=== PATIENT | male | born 1985 | race Caucasian/White ===

== ENCOUNTER 2022-11-16 06:52 | Emergency (ER) | payer OTHER ==
[~2022-11-16] VITALS: Ht 170 cm; Wt 78.0 kg
[2022-11-16] MEDS ORDERED: methylPREDNISolone 125 MG (Solu-MEDROL) VIAL IVP ONE (07:30)
[2022-11-16] MEDS ORDERED: FAMOTIDINE 20MG/2ML IV (PEPCID) IVP ONE (07:30)
[2022-11-16] MEDS ORDERED: diphenhydrAMINE 50 MG/ML INJ (BENADRYL) IVP ONE (07:30)
--- NOTE | 2022-11-16 07:32 | ED General ---
General Chief Complaint: Allergic Reaction Stated Complaint: SOB, LEFT EYE RED,RT EYE SWOLLEN Nursing Triage Note: Pt presents with c/o facial swelling and respiratory distress after taking 2 new antibiotics this morning. Pt states the too Rifampin and cefdenire at appros 0600 and started wheezing and noticing his R eye was swelling shut. Pt took a zyrtec and some afrin. Wheezing has subsided upon arrival to ED. Pt has no previously known medication allergies. Source of Information: Patient Exam Limitations: No Limitations (ROBBIN HANEY) History of Present Illness Date Seen by Provider: Nov 16, 2022 Time Seen by Provider: 07:22 Initial Comments 37yo M with no significant past medical hx presents to the ED with c/o b/l eye swelling, wheezing, and SOB that started ~45 minutes ago. Pt states that he started two new antibiotics this morning, rifampin and cefdinir. ~ 30 minutes after taking the medications, pt states that he experienced sneezing and b/l itching of his eyes. Pt states that he went to wash his eyes out and noticed b/l conjunctival injection, R eye swelling, and flushing of face. Pt also states that he felt like he was "wheezing from his throat" at this time. Pt took Zyrtec and Afin nasal spray at ~6:15am, which gave some relief. In room, pt has profound swelling of R eye and redness and tearing of L. Pt states that respiratory symptoms have resolved and o2 sats are 99% on room air. Pt denies having touched anything and then face, changes laundry detergent or any other medications prior to episode. Pt denies this ever happening before and has no known allergies. Pt is currently being treated for [place] Spotted fever and was recently changed from doxycycline, which he had been taking for 8 weeks, to rifampin and cefdinir. Pt nausea, vomiting, abd pain, CP, current SOB, fever, and mouth swelling. 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 About the events after taking him he developed some right eye swelling some left eye itching and draining had some wheezing. He was at work and took some Zyrtec out of his locker. He states this helped with the wheezing but he still has right eye swelling. He felt like the wheezing was "up in my mouth." He denies any history of allergic reaction or anaphylactic type reactions. He has never taken these medications in the past. Prior to this he been on doxycycline for about a weeks. He denies any chest pain, abdominal pain nausea or vomiting. No skin rashes. (ROSALINE NGUYEN DO) Allergies and Home Medications Allergies Coded Allergies: No Known Drug Allergies (Unverified , 11/16/22) Patient Home Medication List Home Medication List Reviewed: Yes (ROBBIN HANEY) Review of Systems Review of Systems Constitutional: No chills, No fever EENTM: tearing; No hoarseness, No mouth swelling, No throat swelling Respiratory: short of breath (resolved), wheezing (resolved) Cardiovascular: No chest pain, No syncope Gastrointestinal: No abdominal pain, No nausea, No vomiting Genitourinary: No dysuria, No hematuria Musculoskeletal: No gout, No muscle twitching Skin: No change in color, No change in hair/nails, No rash Psychiatric/Neurological: Denies Anxiety, Denies Depressed Hematologic/Lymphatic: No Symptoms Reported Immunological/Allergic: no symptoms reported (ROBBIN HANEY) Past Quhuunj-Ywexkk-Dsfqhe Hx Patient Social History Smoking Status: Never a Smoker Substance use?: No Alcohol Use?: Yes Alcohol type: Hard Liquor (whiskey on ice) Alcohol Frequency: Daily (2 drinks daily) (ROBBIN HANEY) Past Medical History Surgeries: No Respiratory: No Currently Using CPAP: No Currently Using BIPAP: No Cardiac: No Neurological: No Reproductive Disorders: No Genitourinary: No Gastrointestinal: No Musculoskeletal: No Endocrine: No HEENT: No Cancer: No Psychosocial: No Integumentary: No (ROBBIN HANEY) Family Medical History AAA (father), Diabetes (Both uncle, grandmother), Hypertension (father) (ROBBIN HANEY) Physical Exam Vital Signs Vital Signs - First Documented 11/16/22 06:55 Temp 35.0 Pulse 58 Resp 18 B/P (MAP) 142/95 (111) (ROSALINE NGUYEN DO) Vital Signs Capillary Refill : (ROBBIN HANEY) Height, Weight, BMI Height: '" Weight: lbs. oz. kg; 26.00 BMI Method: General Appearance: No Apparent Distress, WD/WN HEENT: Pharynx Normal, Moist Mucous Membranes; No Pharyngeal Erythema; Other (profound swelling on R eye, L ear- mild conjunctival injection and tearing ) Respiratory: Normal Breath Sounds, No Accessory Muscle Use, No Respiratory Distress Cardiovascular: Regular Rate, Rhythm, No Murmur Gastrointestinal: Non Tender, Soft Extremity: No Calf Tenderness, No Pedal Edema Neurologic/Psychiatric: Alert, Oriented x3 Skin: No Rash (ROBBIN HANEY) Progress/Results/Core Measures Suspected Sepsis SIRS Temperature: Pulse: 58 Respiratory Rate: 18 Blood Pressure 142 /95 Mean: 111 (ROBBIN HANEY) Results/Orders My Orders Orders - ROSALINE NGUYEN DO Diphenhydramine Injection (Benadryl Inje (11/16/22 07:30) Methylprednisolone Sod Succ (Solu-Medrol (11/16/22 07:30) Famotidine Injection (Pepcid Injection) (11/16/22 07:30) (ROSALINE NGUYEN DO) Medications Given in ED Current Medications Medications Dose Ordered Sig/Iris Route Start Time Stop Time Status Last Admin Dose Admin Diphenhydramine HCl 50 mg ONCE ONCE IVP 11/16/22 07:30 11/16/22 07:31 DC 11/16/22 07:37 50 MG Famotidine 20 mg ONCE ONCE IVP 11/16/22 07:30 11/16/22 07:31 DC 11/16/22 07:37 20 MG Methylprednisolone Sodium Succinate 125 mg ONCE ONCE IVP 11/16/22 07:30 11/16/22 07:31 DC 11/16/22 07:37 125 MG (ROSALINE NGUYEN DO) Vital Signs/I&O 11/16/22 06:55 Temp 35.0 Pulse 58 Resp 18 B/P (MAP) 142/95 (111) (ROSALINE NGUYEN DO) Vital Signs/I&O Capillary Refill : (ROBBIN HANEY) Blood Pressure Mean: 111 Departure Communication (Admissions) Patient is hemodynamically stable. He is not wheezing on arrival here. He has no chest pain, shortness of breath abdominal pain nausea or vomiting. No skin rash. He is normotensive. Symptoms most consistent with an allergic reaction with eye swelling, redness and drainage. It sounds like by his report he may initially have some oropharyngeal issues but this resolved after he took some Zyrtec and is not present on arrival here or during his observation. His symptoms have nearly completely resolved except for some right eye soft tissue swelling that is improving. He is now able to open his eye whereas it was completely swollen shut initially upon arrival. With that he will be discharged home with supportive care. I gave him steroids to take tomorrow if he had any residual symptoms however I did tell him he did not necessarily need to take his if his symptoms resolved by the end of the day did not recur. He is instructed to use Benadryl every 6 hours as needed. Anticipate that his eye swelling will likely continue to improve as the Solu-Medrol is circulating and becomes more effective. He is discharged home with strict return precautions including develops any chest pain, shortness of breath nausea or vomiting, changes in his voice or mouth swelling. (ROSALINE NGUYEN DO) Impression Primary Impression: Allergic reaction Qualified Codes: T78.40XA - Allergy, unspecified, initial encounter Disposition: 01 HOME, SELF-CARE Condition: Stable Departure-Patient Inst. Referrals: CARMELO ALEVS MD (PCP/Family) Primary Care Physician Patient Instructions: Allergic Reaction ED Add. Discharge Instructions: Your symptoms are improving. I expect this to continue to improve as the steroids continue to take effect. Take Benadryl, 50 mg every 6 hours as needed for itching, swelling. If your symptoms resolve by this afternoon and you do not have any symptoms in the morning then you do not necessarily need to nut picker the steroid medication, however if you continue to have some mild swelling or itching I would nut picker the steroid medication and take it as prescribed. You should return to the emergency department immediately for any swelling in your mouth or throat, voice changes, shortness of breath chest pain or vomiting. Stop taking your rifampin and cefdinir and call your provider to discuss alternative treatment options. Follow-up your primary doctor for any nonemergent needs. All discharge instructions reviewed with patient and/or family. Voiced understanding. Scripts Prednisone (Prednisone) 50 Mg Tab 50 MG PO DAILY for 3 Days, #3 TAB Prov: ROSALINE NGUYEN DO 11/16/22 ROBBIN HANEY Nov 16, 2022 07:32 ROSALINE NGUYEN DO Nov 16, 2022 07:54
[2022-11-16] MEDS ORDERED: PRD50T PO (08:10)
[2022-11-16 08:34] VITALS: BP 130/89
== END 2022-11-16 08:34 | disposition home or self-care (01) ==
LOC: ER 06:58
DX: H57.89 Other specified disorders of eye and adnexa (principal); T36.6X5A Adverse effect of rifampicins, initial encounter; T36.1X5A Adverse effect of cephalosporins and other beta-lactam antibiotics, initial encounter
CPT/HCPCS: 99283